=== PATIENT | female | born 1975 | race Caucasian/White ===

== ENCOUNTER 2016-08-10 16:55 | Emergency (ER) | payer OTHER ==
[2016-08-10] MEDS ORDERED: DILAUDID 1 MG/ML AMP ONE (18:00)
[2016-08-10] MEDS ORDERED: ONDANSETRON 4 MG VIAL ONE (18:01)
[2016-08-10] MEDS ORDERED: SODIUM CHLORIDE 0.9% 1,000 ML ONE (18:01)
== END 2016-08-10 19:21 | disposition home or self-care (01) ==
LOC: ER 16:55
DX: R10.11 Right upper quadrant pain (principal); F17.210 Nicotine dependence, cigarettes, uncomplicated
CPT/HCPCS: 36415; 76705; 80053; 81003; 83690; 84703; 85025; 93005; 96361; 96374; 96375